=== PATIENT | female | born 1990 | race Caucasian/White ===

== ENCOUNTER 2018-04-04 09:00 | Inpatient (IN) | payer OTHER ==
[2018-04-04] MEDS ORDERED: Ringers Lactate 1,000 ML IV PRN (09:43)
[2018-04-04] MEDS ORDERED: METHYLERGONOVINE 0.2MG/ML AMP IM PRN (09:43)
[2018-04-04] MEDS ORDERED: BUTORPHANOL 1 MG/ML INJ IV PRN (09:43)
[2018-04-04] MEDS ORDERED: PROMETHAZINE 25 MG/ML VIAL IM PRN ×2 (09:43)
[2018-04-04] MEDS ORDERED: MEPERIDINE HCL 25 MG/0.5 ML IV PRN (09:43)
[2018-04-04] MEDS ORDERED: Ringers Lactate 1,000 ML IV SCH (10:00)
[2018-04-04] MEDS ORDERED: PENICILLIN G POT 5 MU/100 ML VIAL IV ONE (10:00)
[2018-04-04] MEDS ORDERED: OXYTOCIN/LR 20 UNIT/1,000 ML BAG IV ONE (10:11)
[2018-04-04 10:20] LABS: RPR Titer ND
[2018-04-04] MEDS ORDERED: PENICILLIN G POT 5 MU/100 ML BAG IV ONE (10:20)
[2018-04-04 10:28] LABS: Absolute Lymphocytes (CBC) 1.4 K/uL (0.7-4.9); Absolute Monocytes 0.8 K/uL (0.1-1.3); Absolute Neutrophil 11.9 K/uL (1.8-8.0); Basophils % 0.1 % (0-1.3); Hematocrit 40.6 % (36.0-45.0); Lymphocytes % 10.2 % (15.3-44.8); MCH 29.1 pg (27.0-35.0); MCV 87.1 fL (80-100); MPV 10.2 fL (7.6-11.3); Monocytes % 5.3 % (3.3-12.3); RBC Red Blood Cell Count 4.66 M/uL (3.86-4.86)
[2018-04-04] MEDS ORDERED: FENTANYL/BUPIVACAINE/NS/PF 200 MCG/100 ML BAG EP PRN (12:12)
[2018-04-04] MEDS ORDERED: FENTANYL CITR 100 MCG/2 ML IV ONE (12:13)
[2018-04-04] MEDS ORDERED: BUPIVACAINE 0.25% PF 10 ML VIAL IV PRN (12:13)
[2018-04-04] MEDS ORDERED: CARBOPROST TROME 250 MCG/ML IM ONE (13:06)
[2018-04-04] MEDS ORDERED: LIDOCAINE 2% INJ, 20 mL 0 ML ONE (13:07)
[2018-04-04 13:32] LABS: Urine Appearance CLEAR; Urine Bilirubin NEGATIVE (NEG); Urine Blood 3+ (NEG); Urine Color YELLOW; Urine Glucose NEGATIVE (NEG); Urine Protein TRACE (NEG); Urine Specific Gravity >=1.030 (1.005-1.030); Urine Urobilinogen 0.2 mg/dL (0.2-1.0)
[2018-04-04] MEDS ORDERED: IBUPROFEN 200 MG TAB PO PRN (13:32)
[2018-04-04] MEDS ORDERED: ACETAMINOPHEN 500 MG TAB PO PRN (13:32)
[2018-04-04] MEDS ORDERED: DIPHENHYDRAMINE 25 MG TAB/CAP PO PRN (13:32)
[2018-04-04] MEDS ORDERED: Oxycodone HCl/Acetaminophen 1 TAB TAB PO PRN (13:32)
[2018-04-04] MEDS ORDERED: DOCUSATE NA/SENNA CONC 1 TAB PO PRN (13:32)
[2018-04-04] MEDS ORDERED: BISACODYL 10 MG RECTAL SUPP RECT PRN (13:32)
[2018-04-04 13:34] LABS: Urine Microscopic Reflex ORDER UMIC
[2018-04-04 13:43] LABS: Urine RBC <5 /HPF (NONE SEEN)
[2018-04-04 13:44] LABS: Urine Bacteria 20-50 /HPF (<20); Urine Culture Reflex Order REFLEXED; Urine Mucus 1+ /HPF (NONE SEEN); Urine Trichomonas PRESENT (NONE SEEN)
[2018-04-04] MEDS ORDERED: PENICILLIN 2.5 MU in NA CHLORIDE 0.9% 100 ML IV SCH (14:00)
[2018-04-04] MEDS ORDERED: OXYTOCIN/LR 20 UNIT/1,000 ML BAG IV SCH (14:00)
[2018-04-04] MEDS ORDERED: INFLUENZA VACCINE (for 3y+) 0.5 ML DOSE IMVAC ONE (15:00)
[2018-04-04 15:33] VITALS: BMI 43.5
--- NOTE | 2018-04-04 16:34 | PREOPHP ---
Date of Admission: 04/04/2018 A 27-year-old, 2, para 1, 39 weeks and 1 day. Scheduled for induction tomorrow, comes in act robert labor. 3 cm on admission. She is now 4.5. Spontaneous rupture of membranes with pelvic exam. Clear fluid. Scalp electrode placed. She is jose regularly. Beta strep positive. She recei danis her first dose of penicillin. Rh positive and immune to Rubella. Labor talk given. Anticipate relatively rapid progress from this point forward. Probably, we will want epidural when the baby com es down just a little bit, we will go ahead and do the epidural at that point. SUSANA/BERNARDO Voice ID: [id number]
[2018-04-04] MEDS ORDERED: Ringers Lactate 2,000 ML IV ONE (17:44)
[2018-04-04 19:16] LABS: RPR (Rapid Plasma Reagin) NON-REACT (NON-REACT)
--- NOTE | 2018-04-05 00:52 | OP ---
Surgeon: Salvatore Andrea MD A 27-year-old, 2, para 1, 39 weeks 1 day, scheduled for induction tomorrow, came in in active labor this morning, 3 cm jose 3 to 5 minutes on admission, rapidly went to 4.5 to 5 cm, reque sted epidural anesthesia. This was instituted. Second stage of approximately 25 minutes spontaneous vaginal delivery of an estimated 6-1/2 to 7 pounds male , loose nuchal cord x1. Apgars 8 and 9. No episiotomy. No laceration. Schultze delivery of the placenta, which was inspected and noted to be intact and normal. Less than 300 cc blood loss. The patient is Rh positive, immune to Rubella . Beta strep positive. Received 1 dose of 5 million units of penicillin during the labor. Final Diagnoses: Term intrauterine 39 weeks 1 day, spontaneous labor, vaginal delivery, lo ose nuchal cord, penicillin prophylaxis. SUASNA/BERNARDO Voice ID: [id number] Report ID: [id number]
[2018-04-05] MEDS: Oxycodone HCl/Acetaminophen 1 TAB TAB PO PRN ×2 (04:03→10:35)
[2018-04-05] MEDS ORDERED: INFLUENZA VACCINE (for 3y+) 0.5 ML DOSE IMVAC ONE (09:58)
[2018-04-05 14:22] VITALS: BP 123/75; TEMP 97.9
--- NOTE | 2018-04-06 02:06 | DS ---
Date of Discharge: 04/05/2018 Hospital Course: A 27-year-old female, 2, para 1, 39 weeks 1 day, delivered of a 6-1/2 to 7- pound estimate male infant. Apgars 8 and 9. No episiotomy. No lacerations. Epidural anesthesia. Penicillin prophylaxis x1. Nuchal cord loosely x1. Schultze delivery of the placenta, which was ins pected and noted be intact and normal. Less than 300 cc blood loss. afebrile, ambulating and voiding. Lochia is normal. Will be dismissed later today, to report back to my office in [address] [place] [address] for followup, to report any temperature elevation of 100 degrees or greater, severe pain, heavy bl eeding, or any other type of abnormalities. Dismissed with tramadol for after pains, although she ma y take Motrin instead. She has had her Tdap immunization, but will be offered flu shot. No post-epi dural problems. Final Diagnoses: Intrauterine gestation, 39 weeks 1 day, vaginal delivery, penicillin prophylaxis. Epidural anesthesia. SUSANA/BERNARDO Voice ID: [id number] Report ID: [id number]
[2018-04-06 18:19] LABS: HBsAG Nonreactive (Nonreactive)
== END 2018-04-05 14:20 | disposition home or self-care (01) | DRG 807 ==
LOC: L&D 09:00 → 2ND-WC 09:42
PROVIDERS: ADMIT Specialist; ATTEND Specialist
PROC: 10E0XZZ Delivery of Products of Conception, External Approach (ICD-10-PCS; principal; 2018-04-04)
DX: O69.81X0 Labor and delivery complicated by cord around neck, without compression, not applicable or unspecified (principal); Z37.0 Single live birth; Z3A.39 39 weeks gestation of pregnancy
CPT/HCPCS: 36415; 81003; 81015; 85025; 86592; 86901; 87086; 87088; 87340; J0595; J2175; J2550; J2590; J3010; Q2035

== ENCOUNTER 2021-05-05 04:08 | Inpatient (IN) | payer OTHER ==
[2021-05-05] MEDS ORDERED: PENICILLIN 5 MU in NA CHLORIDE 0.9% 100 ML IV ONE (04:48)
[2021-05-05] MEDS ORDERED: BUTORPHANOL 1 MG/ML INJ IV PRN (05:11)
[2021-05-05] MEDS ORDERED: METHYLERGONOVINE 0.2MG/ML AMP IM PRN (05:11)
[2021-05-05] MEDS ORDERED: PROMETHAZINE INJ 25 MG/ML AMP IM PRN (05:11)
[2021-05-05] MEDS ORDERED: Ringers Lactate 1,000 ML IV PRN (05:11)
[2021-05-05] MEDS ORDERED: CARBOPROST TROME 250 MCG/ML IM PRN (05:11)
[2021-05-05] MEDS ORDERED: Ringers Lactate 1,000 ML IV ONE (05:14)
[2021-05-05 05:43] LABS: Urine Appearance Clear (Clear); Urine Bilirubin Negative (Negative); Urine Blood 2+ (Negative); Urine Color Yellow (Yellow); Urine Glucose Negative (Negative); Urine Protein Negative (Negative); Urine Urobilinogen 0.2 mg/dL (0.2-1.0)
[2021-05-05 05:45] LABS: Urine Microscopic Reflex ORDER UMIC
[2021-05-05 05:52] VITALS: O2SAT 99; BMI 53.4
[2021-05-05 05:52] LABS: Basophils % 0.2 % (0-1.3); Hematocrit 39.4 % (36.0-45.0); Lymphocytes % 20.7 % (15.3-44.8); MPV 10.3 fL (7.6-11.3); RBC Red Blood Cell Count 4.67 M/uL (3.86-4.86)
[2021-05-05] MEDS ORDERED: LABETALOL 20 MG/4ML SYRINGE IV ONE ×2 (05:52→05:56)
[2021-05-05] MEDS ORDERED: MAGNESIUM SULF/STERILE WATER 1,000 ML IV ONE (05:55)
[2021-05-05 05:59] LABS: Urine Bacteria >50 /HPF (<20); Urine Urothelial Cells <5 /HPF (NONE SEEN)
[2021-05-05 06:00] LABS: Urine RBC <5 /HPF (NONE SEEN)
[2021-05-05] MEDS ORDERED: Ringers Lactate 1,000 ML IV SCH (06:00)
[2021-05-05] MEDS ORDERED: MAGNESIUM SULF/STERILE WATER 1,000 ML IV SCH (06:00)
[2021-05-05] MEDS ORDERED: OXYTOCIN/LR 20 UNIT/1,000 ML BAG IV SCH ×2 (06:00→13:00)
--- NOTE | 2021-05-05 07:14 | PREOPHP ---
Date of Admission: 05/05/2021 History Of Present Illness: Clarisa Whipple is a 30-year-old, 3, para 2, at 39 weeks, follow ed antepartum without complications, noted to be Rh positive, nonimmune to rubella, this has been dis cussed and we will immunize her during this hospital stay. COVID negative. Strep positive. She is getting antibiotics-penicillin at this point. Family History: Grandmother with cancer. Her father with diabetes, father with stomach ulcers. Past Medical History: No previous surgeries. Allergies: NO ALLERGIES. Social History: No cigarette smoking. Medications: vitamins prior to admission. Otherwise no other problems. No other medicines . Physical Examination: HEENT: Clear. Pupils equal, round, reactive to light and accommodation. Conjunctivae well perfused . No oral, lingual, buccal lesions. Chest and Lungs: Clear. Heart: Without murmurs, thrills, heaves, rubs. Breasts: Without masses on previous visits. Abdomen: Massively obese. The patient is over 300 pounds. Extremities: Clear. She does have +1 edema, but her reflexes are normal. On admission, her blood p ressures were elevated and the edema was noted. Assessment And Plan: Her urine was not back yet, but with a blood pressure being as high is 180 syst olic. It was decided to start her on magnesium sulfate, 4 g loading dose was given; however, since t hen urine has came back negative and blood pressures have moderated after 1 dose of labetalol 10 mg. It appears that the patient probably does not have preeclampsia at this point. I think the blood pr essure cuff might be the problem as even the largest cuff here is small compared to the patient's arm and we may be getting improper readings. We will monitor this closely, but right now I do not belie ve the patient has preeclampsia. Full and labor talk given. She is 3 cm, rupture of membr anes with clear fluid noted. Baby looks good on the monitor. The patient will probably be requestin g epidural anesthesia when she gets into more active labor at this point. She is not uncomfortable a t all except for her hips which have been bothering her of course throughout the . SUSNAA/BERNARDO Voice ID: [id number]
[2021-05-05] MEDS ORDERED: INFLUENZA VACCINE (for 6+ mo) 0.5 ML DOSE IMVAC ONE (08:00)
[2021-05-05] MEDS ORDERED: PENICILLIN 2.5 MU in NA CHLORIDE 0.9% 100 ML IV SCH (09:00)
[2021-05-05] MEDS ORDERED: 0.2% ROPIVACAINE (200 MG/100 ML) BAG EP ONE (10:46)
[2021-05-05] MEDS ORDERED: FENTANYL CITR 100 MCG/2 ML IV ONE (10:46)
[2021-05-05] MEDS ORDERED: ROPIVACAINE HCL 0.2% 20ML AMP EP ONE (10:48)
[2021-05-05] MEDS ORDERED: LIDOCAINE 1% MPF 30 ML VIAL ONE (12:08)
[2021-05-05] MEDS ORDERED: Oxycodone HCl/Acetaminophen 1 TAB TAB PO PRN ×2 (12:36)
[2021-05-05] MEDS ORDERED: DIPHENHYDRAMINE 25 MG TAB/CAP PO PRN (12:36)
[2021-05-05] MEDS ORDERED: DOCUSATE NA/SENNA CONC 1 TAB PO PRN (12:36)
[2021-05-05] MEDS ORDERED: BISACODYL 10 MG RECTAL SUPP RC PRN (12:36)
[2021-05-05] MEDS ORDERED: ACETAMINOPHEN 500 MG TAB PO PRN (12:36)
[2021-05-05] MEDS ORDERED: Ringers Lactate 4,000 ML IV ONE (13:00)
--- NOTE | 2021-05-05 15:14 | PN ---
Clarisa Whipple about 40 minutes ago was 5 cm. She is now 7. Slight swelling in anterior cervical l ip, -1 to almost 0 station. Baby looks good on the monitor. Blood pressures have improved. The pat ient is much more comfortable now. Anticipate delivery relatively soon. SUSANA/BERNARDO Voice ID: [id number] Report ID: [id number]
[2021-05-05] MEDS: IBUPROFEN 600 MG TAB PO PRN (15:55)
--- NOTE | 2021-05-05 17:44 | OP ---
Surgeon: Salvatore Andrea MD Procedure In Detail: Clarisa Whipple is a 30-year-old, 3, para 2, 39 weeks, followed antepar mamadou. Rh positive, nonimmune to rubella, strep positive, COVID negative. Basically uncomplicated pre gnancy, 39 weeks. The patient requested elective induction. Was 3 cm this morning. Rupture of memb ranes, clear fluid. During the labor, received Stadol 1 mg IV, Phenergan 25 mg IM. She also receive d penicillin prophylaxis secondary her being strep positive. At 5 cm, requested and received epidura l anesthesia, went rapidly to complete second stage of about 15 minutes. Spontaneous vaginal deliver y of an estimated 6.5 to 7 pounds male , Apgars 9 and 9. Small first-degree laceration to post erior fourchette, sutured with 2-0 chromic, approximately 3 interlocking sutures. Schultze delivery of the placenta which was inspected and noted to be intact and normal. Less than 300 cc blood loss. Tolerated all procedures well. Final Diagnoses: Term intrauterine 39 weeks, labor induction, vaginal delivery, epidural a nesthesia, penicillin prophylaxis. SUSANA/CAROLYNL Voice ID: [id number] Report ID: [id number]
[2021-05-06] MEDS: IBUPROFEN 600 MG TAB PO PRN ×2 (00:34→08:05)
[2021-05-06 02:04] LABS: RPR (Rapid Plasma Reagin) NON-REACT (NON-REACT)
[2021-05-06] MEDS ORDERED: INFLUENZA VACCINE (for 6+ mo) 0.5 ML DOSE IMVAC ONE (07:21)
[2021-05-06] MEDS ORDERED: Tdap (Diph,Pertuss(Acell),Tet Vac) 0.5 ML SYR IMVAC ONE (07:22)
[2021-05-06] MEDS ORDERED: MEASLES,MUMPS,RUBELLA VAC 0.5ML SQVAC ONE (07:23)
--- NOTE | 2021-05-06 07:44 | DS ---
Hospital Course: A 30-year-old, 3, para 2, now para 3, 39 weeks 2 days. Delivered of a 7-po und 10-ounce male infant, Apgars 9 and 9. No episiotomy. Very small first-degree laceration requiri ng 3 stitches 2-0 chromic, local infiltration before repair. Schultze delivery of the placenta, whic h inspected and noted to be intact and normal. Less than 300 cc blood loss. The patient had epidura l anesthesia during her labor. Rh positive, nonimmune to rubella. This has been discussed. The pat ient has agreed to rubella immunization before she leaves. Positive strep, received penicillin proph ylaxis. Negative COVID. ; is afebrile, ambulating, voiding, lochia is normal. When baby is dismissed this afternoon, she will be dismissed as well to report to my office in 6 weeks to repor t any temperature elevation of 100 degrees or greater, severe pain, heavy bleeding, or any other type of abnormalities. She will take Motrin for analgesia. Tdap and COVID shots also suggested as well as flu shot. No post epidural problems. No complaints this morning. Final Diagnoses: Term intrauterine 39 weeks and 2 days, vaginal delivery, epidural anesthe sergo, penicillin prophylaxis. Immunizations including rubella offered. SUSANA/BERNARDO Voice ID: [id number] Report ID: [id number]
[2021-05-06 10:03] VITALS: BP 140/77; TEMP 98.5
[2021-05-08 05:57] LABS: HBsAG Nonreactive (Nonreactive)
== END 2021-05-06 14:50 | disposition home or self-care (01) | DRG 807 ==
LOC: 2ND-WC 04:08
PROVIDERS: ADMIT Specialist; ATTEND Specialist
PROC: 10E0XZZ Delivery of Products of Conception, External Approach (ICD-10-PCS; principal; 2021-05-05)
PROC: 10907ZC Drainage of Amniotic Fluid, Therapeutic from Products of Conception, Via Natural or Artificial Opening (ICD-10-PCS; 2021-05-05)
PROC: 0HQ9XZZ Repair Perineum Skin, External Approach (ICD-10-PCS; 2021-05-05)
DX: O70.0 First degree perineal laceration during delivery (principal); Z37.0 Single live birth; O99.824 Streptococcus B carrier state complicating childbirth; Z3A.39 39 weeks gestation of pregnancy; Z23 Encounter for immunization
CPT/HCPCS: 36415; 81003; 81015; 82947; 85025; 86592; 86850; 86900; 86901; 87086; 87088; 87340; 90471; 90707; 90715; J0595; J2540; J2550; J2590; J2795; J3010; J3475; J7120; Q2035